=== PATIENT | female | born 1955 | race Two or more races ===

== ENCOUNTER 2018-12-13 08:08 | Emergency (ER) | payer OTHER ==
[~2018-12-13] VITALS: Ht 152.4 cm; Wt 54.4 kg
[2018-12-13 08:14] VITALS: Ht 152.4 cm; Wt 54.4 kg
[2018-12-13 11:08] VITALS: BP 120/75
== END 2018-12-13 11:08 | disposition home or self-care (01) ==
LOC: ED 08:08
DX: S43.004A Unspecified dislocation of right shoulder joint, initial encounter (principal); S09.8XXA Other specified injuries of head, initial encounter; W01.0XXA Fall on same level from slipping, tripping and stumbling without subsequent striking against object, initial encounter; Y93.89 Activity, other specified; Y92.89 Other specified places as the place of occurrence of the external cause; Y99.8 Other external cause status
CPT/HCPCS: Q0092